=== PATIENT | female | born 1990 | race Caucasian/White ===

== ENCOUNTER 2024-05-14 17:36 | Inpatient (IN) ==
[2024-05-14 21:09] LABS: ABS Basophils 0.1 10^3/uL (0.0-0.1); ABS Eosinophils 0.1 10^3/uL (0.0-0.5); ABS Lymphocytes 2.9 10^3/uL (1.0-4.8); ABS Monocytes 0.5 10^3/uL (0.0-0.9); Eosinophil % 0.8 %; Hematocrit 38.7 % (35-45); Hemoglobin 13.5 g/dL (11.5-14.3); Mean Corpuscular Hemoglobin 32.7 pg (27-33); Mean Corpuscular Hgb Conc 34.9 g/dL (31-36); Mean Corpuscular Volume 93.8 fL (80-97); Mean Platelet Volume 8.5 fL (7.5-11.2); Platelet Count 195 10^3/uL (150-450); Red Blood Count 4.13 10^6/uL (3.63-4.92); Red Cell Distribution Width 12.8 % (12-17); White Blood Count 9.6 10^3/uL (3.8-11.8)
[2024-05-14 21:31] LABS: Urine Benzodiazepine Screen None Detected (None Detect); Urine Cannabinoids Screen None Detected (None Detect); Urine Opiates Screen None Detected (None Detect)
[2024-05-14] MEDS ORDERED: Metoclopramide 5 MG/ML VIAL (10 mg) IV PRN (22:43)
[2024-05-14] MEDS ORDERED: Acetaminophen IV 1 GM/100ML 1,000 MG/100 ML BAG IV PRN (22:43)
[2024-05-14] MEDS ORDERED: Naloxone 0.4 mg VIAL 0.4 mg/ml 1 ml VIAL IV PUSH PRN (22:43)
[2024-05-14] MEDS: Sodium Citrate/Citric Acid LIQ 15 ML UDC PO ONE (22:50)
[2024-05-14] MEDS ORDERED: Morphine PF AMP (0.5MG/ML) 5 MG/10 ML AMP ONE (23:07)
[2024-05-14] MEDS ORDERED: Ondansetron 4 mg VIAL 2 MG/ML 2 ml VIAL ONE (23:51)
[2024-05-14] MEDS ORDERED: Dexamethasone IV 4 MG/ML VIAL 1 ml VIAL ONE (23:51)
[2024-05-15] MEDS ORDERED: Oxytocin 10 UNITS/ML 1 ML VIAL ONE (00:08)
[2024-05-15] MEDS ORDERED: Glycerin ADULT 2.4 gm SUPP PR PRN (00:44)
[2024-05-15] MEDS ORDERED: Dibucaine 1% OINT 28.35 GM TUBE PR PRN (00:44)
[2024-05-15] MEDS ORDERED: Witch Hazel PAD JAR TOPICAL PRN (00:44)
[2024-05-15] MEDS ORDERED: Lactated Ringers 1000 ml BAG 1,000 ML IV SCH (01:00)
[2024-05-15] MEDS: Ondansetron 4 mg VIAL 2 MG/ML 2 ml VIAL IV PRN (02:07)
[2024-05-15 04:44] LABS: Urine Appearance Clear; Urine Bilirubin Negative (Negative); Urine Blood Negative (Negative); Urine Color Light-Yellow; Urine Glucose Negative (Negative); Urine Ketones Negative (Negative); Urine Nitrite Negative (Negative); Urine Protein Negative (Negative); Urine Specific Gravity 1.011 (1.002-1.030); Urine Urobilinogen Negative (Negative); Urine pH 6.5 (5.0-8.0)
[2024-05-15] MEDS: ceFOXitin 2 GM IVPREMIX 2 GM/50 ML BAG IVPB ONE (05:17)
[2024-05-15] MEDS: Sodium Citrate/Citric Acid LIQ 15 ML UDC PO ONE (05:18)
[2024-05-15] MEDS: Oxytocin in LR 20,000 MILLI.UNIT/1,000 ML BAG IV SCH (05:27)
[2024-05-15] MEDS: Lactated Ringers 1000 ml BAG 1,000 ML IV SCH (06:36)
[2024-05-15] MEDS: Buffered Lidocaine 1% SYRIN 1 ml INTRADERM ONE (06:36)
[2024-05-15] MEDS: Lactated Ringers 1000 ml BAG 1,000 ML IV ONE (06:37)
[2024-05-15 06:52] LABS: ABS Basophils 0.1 10^3/uL (0.0-0.1); ABS Lymphocytes 1.7 10^3/uL (1.0-4.8); ABS Monocytes 0.5 10^3/uL (0.0-0.9); ABS Neutrophils 15.4 10^3/uL (1.5-7.6); Hematocrit 37.8 % (35-45); Hemoglobin 13.2 g/dL (11.5-14.3); Lymphocyte % 9.4 %; Mean Corpuscular Hemoglobin 32.7 pg (27-33); Mean Corpuscular Hgb Conc 34.8 g/dL (31-36); Mean Corpuscular Volume 93.9 fL (80-97); Mean Platelet Volume 8.4 fL (7.5-11.2); Platelet Count 189 10^3/uL (150-450); Red Blood Count 4.03 10^6/uL (3.63-4.92); Red Cell Distribution Width 12.6 % (12-17); White Blood Count 17.6 10^3/uL (3.8-11.8)
[2024-05-16 08:51] VITALS: BP 105/56
[2024-05-16] MEDS: Influenza Vaccine *TRI* 2024-25* 0.5 ML SYRINGE IM ONE (10:57)
[2024-05-16] MEDS: Tetan/Diph/Pertus SYR(Tdap) 0.5 ML SYR(BOOSTRIX) use SYR contains LATEX IM ONE (10:59)
== END 2024-05-16 14:30 | disposition home or self-care (01) | DRG 540 ==
LOC: MCHOBOUT 17:36 → MCHOB 17:57
PROVIDERS: ADMIT Midwife; ATTEND Obstetrics & Gynecology